=== PATIENT | male | born 1975 | race Two or more races ===

== ENCOUNTER 2018-04-24 00:24 | Emergency (ER) | payer OTHER, SELFPAY ==
[~2018-04-24] VITALS: Ht 170.2 cm; Wt 75.0 kg
[2018-04-24 00:26] VITALS: BP 126/80
[2018-04-24] MEDS ORDERED: METF500T17 PO (01:09)
[2018-04-24] MEDS ORDERED: PRAV20TA2 PO (01:10)
[2018-04-24] MEDS ORDERED: GLIP10TA13 PO (01:10)
[2018-04-24] MEDS ORDERED: LISI-167 PO (01:10)
== END 2018-04-24 02:43 | disposition home or self-care (01) ==
LOC: ED 02:41
DX: B02.9 Zoster without complications (principal); E11.9 Type 2 diabetes mellitus without complications
CPT/HCPCS: 82962; 99283